=== PATIENT | female | born 1995 | race Two or more races ===

== ENCOUNTER 2022-12-02 21:27 | Emergency (ER) | payer OTHER ==
[~2022-12-02] VITALS: Ht 167.6 cm; Wt 68.0 kg
[2022-12-02] MEDS ORDERED: ZOLOFT50 MG PO (21:37)
== END 2022-12-03 04:13 ==
LOC: ER 21:27
DX: T88.7XXA Unspecified adverse effect of drug or medicament, initial encounter (principal)